=== PATIENT | female | born 1950 | race Caucasian/White ===

== ENCOUNTER 2021-03-05 12:10 | Emergency (ER) | payer MEDICARE, SELFPAY ==
[2021-03-05 12:11] VITALS: BP 134/72; PULSE 77; RESP 16; TEMP 36.3; O2SAT 100; BMI 21.2
--- NOTE | 2021-03-05 13:08 | CT_ITS ---
STUDY: CT FACIAL BONES WITHOUT CONTRAST REASON FOR EXAM: Female, 70 years old. Trauma. RADIATION DOSAGE (If Supplied By Facility): CTDIvol = ( 25.01 ) mGy, DLP = ( 498.63 ) mGycm TECHNIQUE: The patient was scanned in a multi detector CT scanner. Sagittal and coronal images were reconstructed. Individualized dose optimization techniques were used for this CT. COMPARISON: None. FINDINGS: Normal soft tissue structures. Normal orbital brower and orbital contents. Normal nasal bones and anterior nasal spine. Normal facial bones. There is no demonstrated fracture. Normal visualized paranasal sinuses. CT/Sinus/Facial Bone IMPRESSION: Normal unenhanced CT of the facial bones. Electronically Signed: Tai Lizarraga MD at 13:39 EDT , Service support ,
--- NOTE | 2021-03-05 13:08 | CT_ITS ---
STUDY: CT BRAIN WITHOUT CONTRAST REASON FOR EXAM: Female, 70 years old. Injury fall on cement and hit head RADIATION DOSAGE (If Supplied By Facility): CTDIvol = ( 38.43 ) mGy, DLP = ( 669.46 ) mGycm TECHNIQUE: Transaxial CT imaging of the brain was performed without administration of intravenous contrast material. Individualized dose optimization techniques were used for this CT. COMPARISON: No relevant priors. FINDINGS: Brain parenchyma is without focal lesions, mass effect, acute intracranial hemorrhage, extra parenchymal fluid collections, hydrocephalus or herniation. There is mild left frontal deep white matter chronic ischemic hypodensity. The skull is intact. CT/Brain/Head without Contrast IMPRESSION: 1. No acute intracranial injury. 2. Unremarkable brain. Electronically Signed: Martín Joyce MD at 13:45 EDT Tel , Service support ,
--- NOTE | 2021-03-05 13:08 | CT_ITS ---
STUDY: CT CERVICAL SPINE WITHOUT CONTRAST REASON FOR EXAM: Female, 70 years old. Trauma. RADIATION DOSAGE (If Supplied By Facility): CTDIvol = ( 15.24 ) mGy, DLP = ( 301.20 ) mGycm TECHNIQUE: High resolution transaxial imaging was performed without contrast material. Sagittal and coronal images were reconstructed. Individualized dose optimization techniques were used for this CT. COMPARISON: None FINDINGS: Normal craniovertebral junction. There are degenerative changes of the anterior atlantoaxial articulation. Normal odontoid process. Normal cervical lordosis. Normal vertebral bodies and posterior osseous elements. C2-3: Normal endplates. Normal disc height and morphology. Normal central canal and intervertebral neuroforamina. C3-4: Normal endplates. Normal disc height and morphology. Normal central canal and intervertebral neuroforamina. C4-5: Mild degree of disc space narrowing. Facet joint osteoarthritis and hypertrophy worse on the left side. No significant stenosis is seen. C5-6: Marked degree of disc space narrowing. Spondylosis. Facet joint osteoarthritis and hypertrophy worse on the left side. Mild degree of neural foraminal stenosis worse on the left side. C6-7: Marked degree of this space narrowing. Facet joint osteoarthritis and hypertrophy. Uncovertebral arthrosis. Bilateral neural foraminal stenosis worse on the right side. C7-T1: Normal endplates. Normal disc height and morphology. Normal central canal and intervertebral neuroforamina. Normal visualized soft tissue structures. CT/Spine Cervical without Contras IMPRESSION: Multilevel degenerative changes, as described above. Electronically Signed: Tai Lizarraga MD at 13:41 EDT , Service support ,
--- NOTE | 2021-03-05 13:09 | EDS_ITS ---
HPI History of Present Illness Chief Complaint: Fall Informant: patient and spouse/S.O. Onset/Context/Timing Onset: Today Current Severity: Moderate Maximum Severity: Moderate Narrative Narrative: Patient presents secondary to fall. She states that she was walking toward a festival when she tripped and fell against a curb. She struck her left face. She denies loss of consciousness. states area blood pretty briskly for about 15 minutes and then improved. Patient is visiting from [place]. [facility] Medical History High cholesterol Migraines Home Medications atorvastatin 20 mg PO DAILY 03/05/21 [History Last Taken Unknown] Allergy/AdvReac Type Severity Reaction Status Date / Time Sulfa (Sulfonamide Allergy PT UNSURE Verified 03/05/21 12:10 Antibiotics) OF REACTION Social History Smoking Status: Never smoker ROS ROS ED Constitutional Constitutional ED: Denies chills or fever(s) Eyes Eyes: Denies change in vision ENT ENT ED: Reports other Details: Dental pain ; Denies sore throat Cardiovascular Cardiovascular: Denies chest pain Respiratory/Chest Respiratory/Chest: Denies cough or dyspnea Gastrointestinal Gastrointestinal: Denies abdominal pain, diarrhea, nausea or vomiting Genitourinary Genitourinary ED: Denies dysuria Musculoskeletal Musculoskeletal: Reports neck pain; Denies back pain Integumentary Denies rash Neurologic Neurologic: Reports headache(s); Denies weakness Psychiatric Psychiatric: Denies anxiety or depression Endocrine Endocrinology: Denies polydipsia or polyuria Allergic/Immunologic Allergic/Immunologic ED: Denies urticaria EXAM Physical Exam Const Vital Signs: 03/05/21 12:11 03/05/21 12:46 Temperature 97.4 F L Temperature Source Temporal Pulse Rate 77 Respiratory Rate 16 Respiratory Effort Normal Non-Labored Blood Pressure 134/72 H Blood Pressure Mean 92 Pulse Ox 100 Oxygen Delivery Method Room Air Positive well nourished and well developed General Appearance ED: well developed HEENT Reports normocephalic HEENT Narrative: Abrasions to the left upper lip. Deep abrasion to the inner surface of the left upper lip. Left maxillary central and lateral incisors are pushed back approximately 3 mm. Eyes PERRL and EOMs intact bilaterally Neck supple Neck Narrative: Mild C-spine tenderness on palpation. No step-offs. Chest Wall inspection of chest normal and palpation of chest normal Resp normal respiratory effort and clear to auscultation bilaterally Cardio regular rate and regular rhythm GI normal to inspection, nondistended, normoactive bowel sounds Palpation: soft Extremity normal to inspection Neuro oriented x3 and no sensory deficits noted Sensorium / Orientation: alert Motor Exam: strength 5/5 throughout Psych mental status grossly normal MDM MDM MDM Narrative Medical decision making narrative: Patient was sent for CT scans of the head, C- spine, facial bones. Radiography Diagnostic Testing: Radiology Impression Brain CT 03/05/21 13:08 IMPRESSION: 1. No acute intracranial injury. 2. Unremarkable brain. Electronically Signed: Martín Joyce MD at 13:45 EDT Tel , Service support , Cervical Spine CT 03/05/21 13:08 IMPRESSION: Multilevel degenerative changes, as described above. Electronically Signed: Tai Lizarraga MD at 13:41 EDT , Service support , Facial/Sinus 03/05/21 13:08 IMPRESSION: Normal unenhanced CT of the facial bones. Electronically Signed: Tai Lizarraga MD at 13:39 EDT , Service support , Treatment and Re-Evaluation Comments:: CT scans are unremarkable. Test results discussed with patient and at bedside. They are visiting from out of state. I did speak Dr. Guzmán to see if either he or someone he knew will be able to see the patient. He is currently out of town. I was able to contact [facility] across the street and they were willing to see the patient. Patient discharged directly to their office. Discharge Plan Triage Chief Complaint: Fall ED Provider: Darling Duran Dx/Rx/DC Orders Clinical Impression: Dental trauma Instructions: ED Dental Trauma Prescriptions: No Action atorvastatin 20 mg Tablet 20 mg PO DAILY RF: 0 Primary Care Provider: [facility] Doctor,Out of Referrals: [facility] Doctor,Out of [Primary Care Provider] - Disposition Disposition: Home, Self Care Discharge Date/Time: 03/05/21 16:13
== END 2021-03-05 16:13 | disposition home or self-care (01) ==
PROVIDERS: Emergency Provider Emergency Medicine
DX: S09.93XA Unspecified injury of face, initial encounter (principal); E78.00 Pure hypercholesterolemia, unspecified; W01.0XXA Fall on same level from slipping, tripping and stumbling without subsequent striking against object, initial encounter; Z79.899 Other long term (current) drug therapy
CPT/HCPCS: 70450; 70486; 72125; 99282